=== PATIENT | male | born 1940 | race Caucasian/White ===

== ENCOUNTER 2019-10-01 16:30 | IRF | payer MEDICARE, SELFPAY ==
--- NOTE | ~2019-10-01 | XR_ITS ---
EXAMINATION: XR chest 1V portable DATE: 10/02/2019 14:27 INDICATION: Leukocytosis. TECHNIQUE: A single frontal view of the chest was obtained. COMPARISON: None. FINDINGS: There is mild atelectasis in the lower lung zones. No pleural effusion or pneumothorax. The heart size is normal. IMPRESSION: 1. Mild atelectasis in the lower lung zones. Reviewed, dictated and finalized at location B.
--- NOTE | 2019-10-01 17:16 | PC.NURSE ---
This patient, Darwin Daniels, was admitted to [facility] Room 225-01. Patient/family oriented to hospital policies and general routines including ID bracelet, bed and alarms, visiting hours, pain management, procedures, bathroom and other care routines, personal items, smoking policy, room service/diet, and visiting hours. Valuables list has been completed. Information on how to activate the Rapid Response Team has been discussed. Patient/Family are encouraged to report perceived risks to care and to ask questions if they do not understand what they are told or what they should do.
[2019-10-01 17:35] VITALS: BP 123/67; PULSE 68; RESP 18; TEMP 36.2; O2SAT 95; BMI 29.2
[2019-10-01] MEDS: cilostazoL 100 MG TABLET PO (20:46)
[2019-10-01] MEDS: ATORVASTATIN 40 MG TABLET 80 MG PO (20:46)
[2019-10-01] MEDS: APIXABAN 5 MG TABLET PO (20:46)
[2019-10-01] MEDS: HYDROCORTISONE 2.5% CREAM 30 GM TUBE 1 APPLIC TOPICAL (20:47)
[2019-10-01 22:00] VITALS: BP 145/73; PULSE 65; RESP 20; TEMP 36.6; O2SAT 96
[2019-10-02] MEDS: cilostazoL 100 MG TABLET PO ×2 (05:23→16:30)
[2019-10-02 05:27] LABS: Basophils Absolute Auto 0.1 K/mm3 (0.0-0.1); Basophils Percent Auto 0.5 % (0.2-1.2); Eosinophils Absolute Auto 0.3 K/mm3 (0-0.3); Hematocrit 44.4 % (42.0-52.0); Hemoglobin 14.5 g/dL (14.0-18.0); Immature Granulocyte Percent A 0.6 % (0-0.5); Lymphocytes Percent Auto 13.3 % (18.3-44.2); Mean Corpuscular HGB Conc 32.7 g/dl (32-36); Mean Corpuscular Hemoglobin 29.1 pg (26-34); Mean Corpuscular Volume 89.2 fl (80-100); Mean Platelet Volume 11.3 fl (7.4-10.4); Monocytes Absolute Auto 1.2 K/mm3 (0.1-0.6); Monocytes Percent Auto 6.8 % (2.6-8.5); Neutrophils Absolute Auto 13.3 K/mm3 (1.3-6.7); Neutrophils Percent Auto 76.8 % (45.5-73.1); Platelet Count Result 247 k/mm3 (150-375); Red Blood Count 4.98 M/mm3 (4.6-6.20); Red Cell Distribution Width 14.4 % (11.5-14.5); White Blood Count 17.3 K/mm3 (4.5-10.0)
[2019-10-02 05:31] LABS: Anion Gap 7 mmol/L (8-16); Blood Urea Nitrogen 21 mg/dL (9-20); Carbon Dioxide 21 mmol/L (22-30); Chloride 111 mmol/L (98-107); Cholesterol 111 mg/dL (0-200); Estimated CRCL calculation 61 ml/min; Estimated Glomerular Filt Rate > 60; Glucose 117 mg/dL (75-110); HDL Direct 31 mg/dL; Potassium 3.4 mmol/L (3.4-5.0); Sodium 139 mmol/L (137-145); Triglycerides 84 mg/dL (<150)
[2019-10-02 05:42] LABS: LDL Cholesterol Direct 62 mg/dL
[2019-10-02 06:00] VITALS: BP 140/78; PULSE 61; RESP 19; TEMP 36.1; O2SAT 91
[2019-10-02 08:00] VITALS: PULSE 64; RESP 18; O2SAT 95
[2019-10-02 08:51] VITALS: PULSE 62
[2019-10-02] MEDS: lisinopriL 20 MG TABLET 40 MG PO (08:51)
[2019-10-02] MEDS: LORATADINE 10 MG TABLET PO (08:51)
[2019-10-02] MEDS: APIXABAN 5 MG TABLET PO ×2 (08:51→17:00)
[2019-10-02] MEDS: METOPROLOL SUCCINATE EXT REL 12.5 MG TABCR PO (08:51)
[2019-10-02] MEDS: CITALOPRAM HYDROBROMIDE 20 MG TABLET PO (08:51)
[2019-10-02] MEDS: HYDROCORTISONE 2.5% CREAM 30 GM TUBE 1 APPLIC TOPICAL ×2 (08:52→20:23)
[2019-10-02] MEDS: NICOTINE (*PBKC) 7 MG PATCH 1 PATCH TRANSDERM (08:53)
--- NOTE | 2019-10-02 13:39 | PCCCNOTE ---
On 10/02/19, the student, Myranda Mott, provided care and completed [facility] documentation on this patient. I have reviewed the student's documentation and agree with the findings.
[2019-10-02 14:00] VITALS: BP 122/65; PULSE 64; RESP 18; TEMP 36; O2SAT 95
--- NOTE | 2019-10-02 15:01 | WPDREHABHP ---
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 The patient is a [ 63 year right handed male with a past medical history of hypertension and hyperlipidemia who presented to [facility] on September 28, 2019 with left-sided numbness, dizziness and diaphoresis. Patient reported that he was in his usual state of health until afternoon when he became dizzy he described this as spinning sensation. He became diaphoretic. He walked outside to see if fresh air would help but he developed left-sided numbness and felt that his legs were giving out. Paramedics were called and he was taken to the emergency room. Head CT scan was negative for acute intracranial pathology and the patient was given tPA. CT angiography of the head and neck was performed and revealed high-grade occlusion is stenosis at the arch of the left vertebral artery. He was transferred to [facility] neurology was consulted and recommended a dual antiplatelet therapy 24 hours post stroke and added a high intensity statin and aspirin. Hospitalization was significant for hypertension and left-sided weakness physical examination continued to reveal dizziness impaired balance and left-sided weakness and decreased gross motor control and decreased ability to perform ADLs and IADLs. Patient has not traveled outside the [place] or had contact with someone who traveled outside the [place] in the past 21 days patient has not traveled to [place] area of the [place] that is experiencing transmission of the Coronavirus and has not had close personal contact with anyone that has. the patient does not have fever is not experiencing lower respiratory illness symptom therapy was initiated at the acute care facility and the patient was transferred to us from [facility] on October 01, 2019] Therapy was initiated at the acute care facility and the patient transferred to us from [[facility]] on [] FALLS OR SURGERIES: The patient has had [no] major surgeries in the 100 days prior to admission. They had [no] falls in the past year. They had [no] falls with injury in the past year. PAST MEDICAL HISTORY hypertension and hyperlipidemia: PAST SURGICAL HISTORY: lumbar L4-5 back surgery right knee surgery bilateral carpal tunnel surgery SOCIAL HISTORY the patient lives with his 6 dogs and a cat in the under ground home is 70 steps down to the [place] house. He was completely independentwas work working full-time. He was able to perform all ADLs and IADLs independently. He was able to drive used to no assistive device. The patient is very motivated to return to his prior level of independent functioning. I have a and a job will love to go back to work FAMILY HISTORY: noncontributory PRIOR LEVEL OF FUNCTION: Eating was [INDEPENDENT] Oral Care was [INDEPENDENT] Toileting Hygiene was [INDEPENDENT] Shower/Bathing was [INDEPENDENT] Upper Body Dressing was [INDEPENDENT] Lower Body Dressing was [INDEPENDENT] Donning/[place] Footwear was [INDEPENDENT] Rolling Left and Right was [INDEPENDENT] Sit to Lying was [INDEPENDENT] Lying to Sitting was [INDEPENDENT] Sit to Stand was [INDEPENDENT] Bed to Chair Transfers was [INDEPENDENT] Toilet Transfers was [INDEPENDENT] Walking was [INDEPENDENT] [>500 feet] with [NO DEVICE] Wheelchair Mobility was [NOT APPLICABLE PRIOR TO ADMISSION] Stairs were [INDEPENDENT] CURRENT LEVEL OF FUNCTION: Eating was [SET UP ONLY] Oral Care was [SET UP ONLY] Toileting Hygiene was toileting hygiene is partial moderate assistance[] Shower/Bathing was [ partial and moderate assistance] Upper Body Dressing was [ supervision or t
--- NOTE | 2019-10-02 16:37 | RPD ---
INDIVIDUALIZED PLAN OF CARE FOR Darwin Daniels Brief Synthesis of Pre-Admission Screen, Post-Admission Evaluation and Therapy Evaluations: The patient presents to rehab with a right MCA subacute infarct. Comorbidities include hypertension, atrial fibrillation, leukocytosis, intermittent claudication, back pain, left-sided weakness, decreased gross motor control, and impaired balance. The complexity of the patient's medical management, nursing, and therapy needs require an inpatient hospital stay with a physician-led interdisciplinary team. The patient's needs will be best met in an intensive program vs a lower level of care. The patient requires physician services for neurology services, medical oversight, and coordination of care. The patient needs physician monitoring and treatment of hypertension, leukocytosis, monitoring for adverse reactions to new medication, monitoring for infection, and pain control. The patient requires nursing services for frequent neuro checks, anticoagulation therapy, medication management and education, pressure relief and skin care management, monitoring of labs, and fall/safety precuations. Deficits include: ADLs, balance, cognition, endurance, family training, education, mobility, pain management, ROM, safety, strength, and transfers. Land Management Forester/Case Management for: Discharge Planning and Patient/Family Counseling Physical Therapy: 5 days per week for 75 minutes. Treatments may include: Therapeutic Exercise, Gait Training, Neuromuscular Re-education, Transfer Training, Community Reintegration, Bed Mobility, Patient/Family Education, Wheelchair Mobility Group Therapy/Concurrent Therapy Rationales: -Improve attention span during functional activities in a distracted environment. -Enhance problem solving and/or adequate judgment skills during functional activities in a distracted environment. -Promote increased safety awareness in a distracted environment to reduce fall risk with functional tasks, transfers, and ambulation to allow a more safe, self-sufficient return to the home environment. -Improve dynamic balance skills to promote safety and independence with functional activities in a distracted environment for maximum gain. Occupational Therapy: 5 days per week for 75 minutes. Treatments may include: Therapeutic Exercise, Therapeutic Activity, Cognitive Training, Self-Care Transfer Training, Community Reintegration, Home Management, Patient/Family Education, Wheelchair Mobility Training, Energy Conservation Training Group Therapy/Concurrent Therapy Rationales: -Allow therapist to observe and teach generalization and carry-over of skills learned in individual therapy. -Enhance problem solving and sequencing skills during therapeutic activities in a distracted environment. -Promote increased safety awareness in a realistic setting to reduce fall risk with functional tasks due to visual and verbal distractions. -Increase functional level with ADLs, ADL transfers and use of adaptive equipment through therapeutic activities with others while promoting safety to allow a more safe, self-sufficient return home. Speech Therapy: 5 days per week for 30 minutes. Treatments may include: Dysphasia Therapy, Speech/Language/Communication Therapy, Cognitive Training, Patient/Family Education Group Therapy/Concurrent Therapy - Rationale: -Allow therapist to observe and teach generalization and carry-over of skills learned in individual therapy. -Improve comprehension skills with complex or abstract ideas through discussion in a realistic setting. -Enhance problem solving skills with complex issues during activities in a distracted environment. -Promote increased memory skills and concentration in a distracted environment for a safe transition home. -Improve attention and focus with language/communication skills in a realistic and supportive therapeutic setting. -Allow for practice of expression of basic needs and ideas through functional activiti
[2019-10-02] MEDS: ATORVASTATIN 40 MG TABLET 80 MG PO (20:21)
[2019-10-02 21:53] VITALS: BP 119/69; PULSE 75; RESP 18; TEMP 36.1; O2SAT 95
[2019-10-03] MEDS: cilostazoL 100 MG TABLET PO ×2 (05:09→17:48)
[2019-10-03 05:22] LABS: Basophils Absolute Auto 0.1 K/mm3 (0.0-0.1); Basophils Percent Auto 0.4 % (0.2-1.2); Eosinophils Absolute Auto 0.3 K/mm3 (0-0.3); Eosinophils Percent Auto 1.9 % (0-4.4); Hematocrit 42.6 % (42.0-52.0); Hemoglobin 13.9 g/dL (14.0-18.0); Immature Granulocyte Absolute 0.09 K/mm3 (0.00-0.031); Immature Granulocyte Percent A 0.5 % (0-0.5); Lymphocytes Absolute Auto 2.59 K/mm3 (0.9-3.2); Lymphocytes Percent Auto 14.9 % (18.3-44.2); Mean Corpuscular HGB Conc 32.6 g/dl (32-36); Mean Corpuscular Hemoglobin 28.5 pg (26-34); Mean Corpuscular Volume 87.3 fl (80-100); Mean Platelet Volume 11.3 fl (7.4-10.4); Monocytes Absolute Auto 1.3 K/mm3 (0.1-0.6); Monocytes Percent Auto 7.2 % (2.6-8.5); Neutrophils Absolute Auto 13.1 K/mm3 (1.3-6.7); Neutrophils Percent Auto 75.1 % (45.5-73.1); Platelet Count Result 275 k/mm3 (150-375); Red Blood Count 4.88 M/mm3 (4.6-6.20); Red Cell Distribution Width 14.2 % (11.5-14.5); White Blood Count 17.4 K/mm3 (4.5-10.0)
[2019-10-03 05:55] VITALS: BP 105/53; PULSE 70; RESP 18; TEMP 35.6; O2SAT 90
[2019-10-03] MEDS: APIXABAN 5 MG TABLET PO ×2 (08:50→17:48)
[2019-10-03] MEDS: CITALOPRAM HYDROBROMIDE 20 MG TABLET PO (08:50)
[2019-10-03] MEDS: HYDROCORTISONE 2.5% CREAM 30 GM TUBE 1 APPLIC TOPICAL ×2 (08:50→20:29)
[2019-10-03] MEDS: lisinopriL 20 MG TABLET 40 MG PO (08:50)
[2019-10-03 08:51] VITALS: PULSE 70
[2019-10-03] MEDS: METOPROLOL SUCCINATE EXT REL 12.5 MG TABCR PO (08:51)
[2019-10-03] MEDS: NICOTINE (*PBKC) 7 MG PATCH 1 PATCH TRANSDERM (08:51)
--- NOTE | 2019-10-03 12:30 | PM.IMCN ---
Assessment and Plan Assessment and plan (1) Leukocytosis: Code(s): D72.829 - Elevated white blood cell count, unspecified Status: Acute Assessment and Plan: WBC was elevated at 17.3 on initial labs and 17.4 on repeat. There is neutrophil predominance. He is feeling well and at this time there is no obvious etiology for the leukocytosis. There does not appear to be any source of infection. He has been afebrile. He is not septic. There are no prior labs for review to establish a baseline WBC. He is a smoker and it is possibly that he simply has an elevated white count. He has not received any steroids. No evidence of pneumonia on CXR. Patient has not had any respiratory symptoms. Will check UA to evaluate for urinary source. He is asymptomatic. Attempt to obtain stool cultures. He has had intermittent diarrhea for months. He has not had any abdominal pain, cramping, bloating, or discomfort. At this time there is no indication for CT scan of the abdomen. Order blood cultures for evaluation Check labs including CRP and lactic. Monitor CBC (2) Hyperlipidemia: Code(s): E78.5 - Hyperlipidemia, unspecified Status: Acute Assessment and Plan: Lipid panel was performed and is within normal limits. Continue atorvastatin (3) Hypertension: Code(s): I10 - Essential (primary) hypertension Status: Acute Assessment and Plan: Blood pressures are stable and well controlled. 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 He has residual left sided weakness. Continue current care plan, PT/OT/ST (5) Tobacco abuse: Code(s): Z72.0 - Tobacco use Status: Acute Assessment and Plan: He smokes 1 ppd. He has not smoked in 1 week since his hospital evaluation. I have educated him on smoking cessation. Continue nicotine patch HPI Data of Consult Consult date: 10/03/19 Requesting Physician: Fahad Conklin MD Primary Care Provider: PHYSICIAN NOT ON STAFF Consult Narrative Narrative: Date of admission: 10/01/2019 Date of service: 10/03/2019 Darwin Daniels is a 79 year old male with a history of hypertension, hyperlipidemia, peripheral vascular disease, and recent left vertebral artery occlusive stroke who is being evaluated in consultation by the hospitalist service for leukocytosis. He is currently undergoing [facility] after having a recent stroke for which she was treated at [facility] approximately 1 week ago. He has residual left arm and leg numbness and tingling. He states the extremities will just flop. He also believes he has notice changes in his speech and has had a harder time swallowing. Aside from these complaints related to residual effects from his stroke, he has no additional concerns at this time. He does not feel ill. He states that he is in his usual state of health with the exception of his recent stroke symptoms. He is a fair historian at best. He is not able to contribute much to his medical history and he does not know what medications he takes because his handles this for him. He denies fever, chills, nausea, vomiting, or headache. He reports that he has had diarrhea on and off for several months. His last bowel movement was 4 days ago and he believes it was liquid at this time. He states that every now and then he will have watery stools but this does not seem to have been a recent issue for him. He does not have any abdominal pain, cramping, or bloating. He endorses productive cough that has gone on for weeks. He states he has sputum production but he swallows it and is unable to say what it looks like. He denies shortness of breath or chest pain. No sore throat. He denies any irritative
--- NOTE | 2019-10-03 13:59 | WPDNEURORHBP ---
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 hypertension hyperlipidemia previous right carotid endarterectomy and chronically occluded right cervical artery [facility] surgeons were consulted for ICA occlusion on the right side but he was noted good candidate to report to repeat the [id number] 13:59 Review of Systems Review of Systems: All systems reviewed & are unremarkable except as noted in HPI and below Functional Status Ambulation Ability Ability to Ambulate 10 Feet: Minimum Assistance X 1 Ability to Ambulate 50 Feet With 2 Turns: Minimum Assistance X 1 Ability to Ambulate 150 Feet: Minimum Assistance X 1 Ambulation Assistive Devices: Walker, Wheeled Transfers Ability Ability to Transfer In/Out of Chair: Minimum Assistance X 1 Exam Narrative: Exam Narrative: continues to be awake alert cooperative in no obvious acute distress at this particular time his is visiting him head normocephalic ears nose throat exam normal neck is supple heart regular lungs clear abdomen soft neurological is normal mental status normal speech and follows all instructions very well and exam revealed him to be left hemiparetic with hyperreflexia and upgoing plantar response Objective Data Vital Signs Vital Signs: Vital Signs - 24 hr 10/02/19 14:00 10/02/19 21:53 10/03/19 05:55 Temperature 36.0 C L 36.1 C L 35.6 C L Pulse Rate 64 75 70 Respiratory Rate 18 18 18 Blood Pressure 122/65 119/69 105/53 L Pulse Oximetry 95 95 90 10/03/19 08:51 Temperature Pulse Rate 70 Respiratory Rate Blood Pressure Pulse Oximetry Intake/Output Intake/Output: Intake & Output 09/30/19 10/01/19 10/02/19 10/03/19 23:59 23:59 23:59 23:59 Intake Total 240 960 480 Balance 240 960 480 Meds/Results Medications: Active Medications Generic Name Dose Route Start Last Admin Trade Name Freq PRN Reason Stop Dose Admin Apixaban 5 mg 10/01/19 19:40 10/03/19 08:50 Eliquis PO 5 mg BID ANGEL Administration Atorvastatin Calcium 80 mg 10/01/19 21:00 10/02/19 20:21 Lipitor PO 80 mg HS ANGEL Administration Cilostazol 100 mg 10/01/19 19:40 10/03/19 05:09 Pletal PO 100 mg BIDAC ANGEL Administration Citalopram Hydrobromide 20 mg 10/02/19 09:00 10/03/19 08:50 Celexa PO 20 mg DAILY ANGEL Administration Ergocalciferol 50,000 unit 10/05/19 09:00 Drisdol PO Mo@0900 ANGEL Hydrocortisone 1 applic 10/01/19 21:00 10/03/19 08:50 Hydrocortisone 2.5% Cream TOPICAL 1 applic Q12HR ANGEL Administration Lisinopril 40 mg 10/02/19 09:00 10/03/19 08:50 Prinivil PO 40 mg DAILY ANGEL Administration Loratadine 10 mg 10/01/19 19:34 10/02/19 08:51 Claritin PO 10 mg DAILY PRN Administration Allergy Symptoms Metoprolol Succinate 12.5 mg 10/02/19 09:00 10/03/19 08:51 Toprol Xl PO 12.5 mg DAILY ANGEL Administration Nicotine 1 patch 10/02/19 09:00 10/03/19 08:51 Nicoderm Cq 7 Mg TRANSDERM 1 patch DAILY ANGEL Administration Radiology Results: ITS Impressions Chest X-Ray 10/02/19 14:36 IMPRESSION: 1. Mild atelectasis in the lower lung zones. Labs Labs: Laboratory Results - last 24 hr 10/03/19 04:44 WBC 17.4 H RBC 4.88 Hgb 13.9 L Hct 42.6 MCV 87.3 MCH 28.5 MCHC 32.6 RDW 14.2 Plt Count 275 MPV 11.3 H Immature Gran % (Auto) 0.5 Neut % (Auto) 75.1 H Lymph % (Auto) 14.9 L [place] % (Auto) 7.2 Eos % (Auto) 1.9 Baso % (Auto) 0.4 Lymph # (Auto) 2.59 [place] # (Auto) 1.3 H Eos # (Auto) 0.3 Baso # (Auto) 0.1 Abs Immat Gran (auto) 0.09 H Absolute Neuts (auto) 13.1 H Absolute Nucleated RBC 0.0 Nucleated RBC % 0.0 Progress Note: A&P Assessment and Plan (1) Tobacco abuse: Code(s): Z72.0 - Tobacco use Status: Acute (2) Leukocytosis: Code(s): D72.829 - Elevated white
[2019-10-03 14:00] VITALS: BP 120/56; PULSE 76; RESP 20; TEMP 36.7; O2SAT 96
[2019-10-03] MEDS: ATORVASTATIN 40 MG TABLET 80 MG PO (20:28)
[2019-10-03 22:00] VITALS: BP 124/59; PULSE 64; RESP 18; TEMP 35.8; O2SAT 97
[2019-10-03 22:53] LABS: Add Urine Microscopic? YES; Appearance Urine Clear (Clear); Bilirubin Urine Negative (Negative); Blood Urine 1+ (Negative); Color Urine Yellow (Yellow); Glucose Urine UA Negative (Negative); Ketones Urine Negative (Negative); Leukocyte Esterase Ur Negative LEU/UL (Negative); Mucus Urine Rare /lpf; Nitrate Urine Negative (Negative); Protein Urine Negative (Negative); Specific Grav Ur 1.027 (1.001-1.035); Squamous Epithelial Cell Urine Rare /hpf (Few); Urobilinogen Urine Negative mg/dL (<2.0); WBC Urine 0-3 /hpf
[2019-10-04 04:58] LABS: Basophils Absolute Auto 0.1 K/mm3 (0.0-0.1); Basophils Percent Auto 0.4 % (0.2-1.2); Eosinophils Absolute Auto 0.3 K/mm3 (0-0.3); Eosinophils Percent Auto 1.9 % (0-4.4); Hemoglobin 13.9 g/dL (14.0-18.0); Immature Granulocyte Absolute 0.09 K/mm3 (0.00-0.031); Immature Granulocyte Percent A 0.6 % (0-0.5); Lymphocytes Absolute Auto 2.49 K/mm3 (0.9-3.2); Lymphocytes Percent Auto 15.4 % (18.3-44.2); Mean Corpuscular HGB Conc 33.1 g/dl (32-36); Mean Corpuscular Hemoglobin 29.3 pg (26-34); Mean Corpuscular Volume 88.4 fl (80-100); Mean Platelet Volume 11.3 fl (7.4-10.4); Monocytes Absolute Auto 1.3 K/mm3 (0.1-0.6); Monocytes Percent Auto 7.8 % (2.6-8.5); Neutrophils Percent Auto 73.9 % (45.5-73.1); Platelet Count Result 252 k/mm3 (150-375); Red Blood Count 4.75 M/mm3 (4.6-6.20); Red Cell Distribution Width 14.2 % (11.5-14.5); White Blood Count 16.2 K/mm3 (4.5-10.0)
[2019-10-04 05:19] LABS: Lactic Acid 0.7 mmol/L (0.7-2.1)
[2019-10-04 05:24] LABS: CRP 1.2 mg/dL (<1.0)
[2019-10-04 06:00] VITALS: BP 119/66; PULSE 93; RESP 18; TEMP 33.8; O2SAT 91
[2019-10-04] MEDS: cilostazoL 100 MG TABLET PO ×2 (06:16→17:32)
[2019-10-04 08:35] VITALS: TEMP 36.8
[2019-10-04 08:55] VITALS: PULSE 93
[2019-10-04] MEDS: NICOTINE (*PBKC) 7 MG PATCH 1 PATCH TRANSDERM (08:55)
[2019-10-04] MEDS: METOPROLOL SUCCINATE EXT REL 12.5 MG TABCR PO (08:55)
[2019-10-04] MEDS: APIXABAN 5 MG TABLET PO ×2 (08:55→17:32)
[2019-10-04] MEDS: HYDROCORTISONE 2.5% CREAM 30 GM TUBE 1 APPLIC TOPICAL (08:55)
[2019-10-04] MEDS: LORATADINE 10 MG TABLET PO (08:55)
[2019-10-04] MEDS: CITALOPRAM HYDROBROMIDE 20 MG TABLET PO (08:55)
[2019-10-04] MEDS: lisinopriL 20 MG TABLET 40 MG PO (08:55)
--- NOTE | 2019-10-04 13:09 | PM.IMPN ---
Progress Note: A&P Assessment and Plan (1) Leukocytosis: Code(s): D72.829 - Elevated white blood cell count, unspecified Status: Acute Assessment and Plan: WBC was elevated at 17.3 on initial labs and 17.4 on repeat. There is neutrophil predominance. Lymphocytes are very mildly decreased. He is feeling well and at this time there is no obvious etiology for the leukocytosis. I do not suspect the patient has an active infection. He has been afebrile. He is not septic. There are no prior labs for review to establish a baseline WBC. He is a smoker and it is possible that he simply has an elevated baseline white count. His states they have been told before his white count has been elevated. He has not received any steroids. WBC has declined to 16.2 today. Lactic is within normal limits. CRP is minimally elevated. No evidence of pneumonia on CXR. Patient has not had any respiratory symptoms. UA was normal. Urine culture is pending. He is asymptomatic. Stool cultures are pending. Preliminary blood cultures reveal NGTD Monitor CBC with diff and continue to trend WBC (2) Hyperlipidemia: Code(s): E78.5 - Hyperlipidemia, unspecified Status: Acute Assessment and Plan: Lipid panel was performed and is within normal limits. Continue atorvastatin (3) Hypertension: Code(s): I10 - Essential (primary) hypertension Status: Acute Assessment and Plan: Blood pressures are stable and well controlled. 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 He has residual left sided weakness. Continue current care plan, PT/OT/ST (5) Tobacco abuse: Code(s): Z72.0 - Tobacco use Status: Acute Assessment and Plan: He smokes 1 ppd. He has not smoked in 1 week since his hospital evaluation. I have educated him on smoking cessation. Continue nicotine patch Additional Plan Will add Ensure dietary supplements as patient has not been eating much because he is a picky eater. Subjective Date/time seen: 10/04/19 13:09 Interval history: Date of service: 10/04/2019 He is feeling well today. He has no complaints at this time. He did therapy today and tolerated it well. He denies any infectious signs or symptoms. He has no fever, chills, nausea, vomiting, abdominal pain, shortness of breath, cough, chest pain, dizziness, or lightheadedness. He had a loose stool today. 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 He has had poor appetite today and he states he does not like the food here. He also does not like to drink water. I spoke with him and his about zero sugar additives to flavor water so he will remain well hydrated. Review of Systems Review of Systems: Narrative: A 12 point review of systems was reviewed with pertinent positives and negatives as per HPI. Exam Narrative: Exam Narrative: Mr. Daniels is a well-nourished 79-year-old male who is lying supine in bed. He appears comfortable and is in no acute respiratory distress. 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
[2019-10-04 14:00] VITALS: BP 102/56; PULSE 66; RESP 18; TEMP 36.2; O2SAT 93
[2019-10-04] MEDS: ATORVASTATIN 40 MG TABLET 80 MG PO (20:57)
[2019-10-04 21:58] VITALS: PULSE 86; O2SAT 92
[2019-10-04 22:00] VITALS: BP 120/51; PULSE 62; RESP 18; TEMP 36.9; O2SAT 94
[2019-10-05 05:07] LABS: Basophils Absolute Auto 0.1 K/mm3 (0.0-0.1); Basophils Percent Auto 0.5 % (0.2-1.2); Eosinophils Absolute Auto 0.4 K/mm3 (0-0.3); Eosinophils Percent Auto 2.5 % (0-4.4); Hematocrit 40.9 % (42.0-52.0); Hemoglobin 13.7 g/dL (14.0-18.0); Immature Granulocyte Absolute 0.07 K/mm3 (0.00-0.031); Immature Granulocyte Percent A 0.5 % (0-0.5); Lymphocytes Absolute Auto 2.63 K/mm3 (0.9-3.2); Lymphocytes Percent Auto 17.7 % (18.3-44.2); Mean Corpuscular HGB Conc 33.5 g/dl (32-36); Mean Corpuscular Hemoglobin 29.1 pg (26-34); Mean Platelet Volume 11.1 fl (7.4-10.4); Monocytes Absolute Auto 1.1 K/mm3 (0.1-0.6); Monocytes Percent Auto 7.7 % (2.6-8.5); Neutrophils Absolute Auto 10.6 K/mm3 (1.3-6.7); Neutrophils Percent Auto 71.1 % (45.5-73.1); Platelet Count Result 266 k/mm3 (150-375); Red Cell Distribution Width 14.1 % (11.5-14.5); White Blood Count 14.9 K/mm3 (4.5-10.0)
[2019-10-05 06:00] VITALS: BP 115/90; PULSE 69; RESP 16; TEMP 36.6; O2SAT 96
[2019-10-05 08:00] VITALS: PULSE 76; RESP 18; O2SAT 96
[2019-10-05] MEDS: cilostazoL 100 MG TABLET PO ×2 (08:02→16:20)
[2019-10-05] MEDS: APIXABAN 5 MG TABLET PO ×2 (09:40→16:21)
[2019-10-05 09:41] VITALS: PULSE 68
[2019-10-05] MEDS: ERGOCALCIFEROL 50,000 UNIT CAPSULE 50000 UNITS PO (09:41)
[2019-10-05] MEDS: NICOTINE (*PBKC) 7 MG PATCH 1 PATCH TRANSDERM (09:41)
[2019-10-05] MEDS: lisinopriL 20 MG TABLET 40 MG PO (09:41)
[2019-10-05] MEDS: LORATADINE 10 MG TABLET PO (09:41)
[2019-10-05] MEDS: METOPROLOL SUCCINATE EXT REL 12.5 MG TABCR PO (09:41)
[2019-10-05] MEDS: CITALOPRAM HYDROBROMIDE 20 MG TABLET PO (09:42)
--- NOTE | 2019-10-05 12:57 | PM.IMPN ---
Progress Note: A&P Assessment and Plan (1) Leukocytosis: Qualifiers: Leukocytosis type: unspecified Qualified Code(s): D72.829 - Elevated white blood cell count, unspecified Code(s): D72.829 - Elevated white blood cell count, unspecified Status: Acute Assessment and Plan: WBC was elevated at 17.3 on initial labs and 17.4 on repeat. There is neutrophil predominance. Lymphocytes are very mildly decreased. He is feeling well and at this time there is no obvious etiology for the leukocytosis. I do not suspect the patient has an active infection. He has been afebrile. He is not septic. There are no prior labs for review to establish a baseline WBC. He is a smoker and it is possible that he simply has an elevated baseline white count. Additionally, could have been secondary to acute stroke with slow decline. His states they have been told before his white count has been elevated. He has not received any steroids. WBC has declined to 14.9k today. Lactic is within normal limits. CRP is minimally elevated. No evidence of pneumonia on CXR. Patient has not had any respiratory symptoms. Urine culture is negative C diff toxin is negative. Cryptosporidium and giardia negative. Additional stool cultures are pending. Preliminary blood cultures reveal NGTD Monitor CBC with diff and continue to trend WBC (2) Hyperlipidemia: Qualifiers: Hyperlipidemia type: unspecified Qualified Code(s): E78.5 - Hyperlipidemia, unspecified Code(s): E78.5 - Hyperlipidemia, unspecified Status: Acute Assessment and Plan: Lipid panel was performed and is within normal limits. Continue atorvastatin (3) Hypertension: Qualifiers: Hypertension type: essential hypertension Qualified Code(s): I10 - Essential (primary) hypertension Code(s): I10 - Essential (primary) hypertension Status: Acute Assessment and Plan: Blood pressures are stable and well controlled. 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 He has residual left sided weakness. Continue current care plan, PT/OT/ST (5) Tobacco abuse: Code(s): Z72.0 - Tobacco use Status: Acute Assessment and Plan: He smokes 1 ppd. He has not smoked in 1 week since his hospital evaluation. I have educated him on smoking cessation. Continue nicotine patch Subjective Date/time seen: 10/05/19 12:57 Interval history: Date of service: 10/05/2019 Review of Systems Review of Systems: Narrative: A 12 point review of systems was reviewed with pertinent positives and negatives as per HPI. Exam Narrative: Exam Narrative: Mr. Daniels is a well-nourished 79-year-old male who is lying supine in bed. He appears comfortable and is in no acute respiratory distress. 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, otherwise strength 5/5 throughout HEENMT: normocephalic, atraumatic, EOMI, sclerae anicteric, moist oral mucosa, tongue midline Neck: supple, no lymphadenopathy Respiratory: diminished breath sounds without crackles, wheezes, or rhonchi, nonlabored breathing Cardio: regular rate, regular rhythm with S1-S2 Abdomen: nondistended, normoactive bowel sounds, soft, nontender to palpation Extremities: no edema, erythema, cyanosis, clubbing, or tenderness to palpation, DP pulses 2+ bilaterally Skin: no rashes, lesions, wounds, or openings, warm and dry Psych: appropriate mood and affect Objective Data Vital Signs Vital Signs: Vital Signs
[2019-10-05 13:22] VITALS: BMI 29.2
--- NOTE | 2019-10-05 13:25 | WPDNEURORHBP ---
Subjective Date/time seen: 10/05/19 13:25 Interval history: this 79-year-old is here after having had the stroke with has left him with left-sided weakness is doing fairly well his leukocytosis coming down the hospitalist notes were reviewed he is feeling good denies any headache nausea vomiting extraordinary fatigue chest pain shortness of breath fever chills sore throat Review of Systems Review of Systems: All systems reviewed & are unremarkable except as noted in HPI and below Functional Status Ambulation Ability Ability to Ambulate 10 Feet: Contact Guard Ability to Ambulate 50 Feet With 2 Turns: Contact Guard Ability to Ambulate 150 Feet: Contact Guard Ambulation Assistive Devices: Walker, Wheeled Transfers Ability Ability to Transfer In/Out of Chair: Minimum Assistance X 1 Exam Const: General: comfortable and no acute distress HENMT: General nose exam: Normal nares present Mouth: Yes moist mucous membranes Eyes: General: appearance normal, both eyes and all related structures Neck: Neck: supple and no JVD Resp: Effort & Inspection: normal respiratory effort Auscultation: clear to auscultation bilaterally Cardio: Rate: regular rate Rhythm: regular rhythm GI: GI Palp: Yes Soft to palpation Auscultation: normal bowel sounds Skin: General skin exam: normal color and no rashes or lesions noted Neuro: Other: patient awake alert well oriented denies any headache nausea vomiting chest pain shortness of breath fever chills sore throat is weakness on the left side is improving Extrem: General: normal to inspection Psych: Mental Status: mental status grossly normal Objective Data Vital Signs Vital Signs: Vital Signs - 24 hr 10/04/19 14:00 10/04/19 21:58 10/04/19 22:00 Temperature 36.2 C L 36.9 C Pulse Rate 66 86 62 Respiratory Rate 18 18 Blood Pressure 102/56 L 120/51 L Pulse Oximetry 93 92 94 10/05/19 06:00 10/05/19 09:41 Temperature 36.6 C Pulse Rate 69 68 Respiratory Rate 16 Blood Pressure 115/90 Pulse Oximetry 96 Intake/Output Intake/Output: Intake & Output 10/02/19 10/03/19 10/04/19 10/05/19 23:59 23:59 23:59 23:59 Intake Total 960 720 900 240 Balance 960 720 900 240 Meds/Results Medications: Active Medications Generic Name Dose Route Start Last Admin Trade Name Freq PRN Reason Stop Dose Admin Apixaban 5 mg 10/01/19 19:40 10/05/19 09:40 Eliquis PO 5 mg BID ANGEL Administration Atorvastatin Calcium 80 mg 10/01/19 21:00 10/04/19 20:57 Lipitor PO 80 mg HS ANGEL Administration Cilostazol 100 mg 10/01/19 19:40 10/05/19 08:02 Pletal PO 100 mg BIDAC ANGEL Administration Citalopram Hydrobromide 20 mg 10/02/19 09:00 10/05/19 09:42 Celexa PO 20 mg DAILY ANGEL Administration Ergocalciferol 50,000 unit 10/05/19 09:00 10/05/19 09:41 Drisdol PO 50,000 unit Mo@0900 [facility] Administration Hydrocortisone 1 applic 10/04/19 20:53 Hydrocortisone 2.5% Cream TOPICAL Q12HR PRN Rash Lisinopril 40 mg 10/02/19 09:00 10/05/19 09:41 Prinivil PO 40 mg DAILY ANGEL Administration Loperamide HCl 2 mg 10/04/19 15:13 Loperamide Hcl PO PRN PRN Diarrhea Loratadine 10 mg 10/01/19 19:34 10/05/19 09:41 Claritin PO 10 mg DAILY PRN Administration Allergy Symptoms Metoprolol Succinate 12.5 mg 10/02/19 09:00 10/05/19 09:41 Toprol Xl PO 12.5 mg DAILY ANGEL Administration Nicotine 1 patch 10/02/19 09:00 10/05/19 09:41 Nicoderm Cq 7 Mg TRANSDERM 1 patch DAILY ANGEL Administration Radiology Results: ITS Impressions Chest X-Ray 10/02/19 14:36 IMPRESSION: 1. Mild atelectasis in the lower lung zones. Labs Labs: Laboratory Results - last 24 hr 10/05/19 04:49 WBC 14.9 H RBC 4.70 Hgb 13.7 L Hct 40.9 L MCV 87.0 MCH 29.1 MCHC 33.5 RDW 14.1 Plt Count 266 MPV 11.1 H Immature Gran % (Auto) 0.5 Neut % (Auto) 71.1 Lymph % (Auto) 17.7 L [place]
[2019-10-05 14:00] VITALS: BP 138/62; PULSE 76; RESP 18; TEMP 36.3; O2SAT 96
--- NOTE | 2019-10-05 15:04 | PCNSR ---
On 10/05/19, the student, Avery Sanz, provided care and [facility] on this patient. I have reviewed the student's documentation and agree with the findings.
[2019-10-05] MEDS: ATORVASTATIN 40 MG TABLET 80 MG PO (20:29)
[2019-10-05 20:41] VITALS: BP 101/47; PULSE 69; RESP 18; TEMP 36.4; O2SAT 93
[2019-10-05 22:36] VITALS: PULSE 86; O2SAT 92
[2019-10-06 05:20] LABS: Basophils Absolute Auto 0.1 K/mm3 (0.0-0.1); Basophils Percent Auto 0.5 % (0.2-1.2); Eosinophils Absolute Auto 0.4 K/mm3 (0-0.3); Eosinophils Percent Auto 2.5 % (0-4.4); Hemoglobin 13.4 g/dL (14.0-18.0); Immature Granulocyte Absolute 0.06 K/mm3 (0.00-0.031); Immature Granulocyte Percent A 0.4 % (0-0.5); Lymphocytes Absolute Auto 2.21 K/mm3 (0.9-3.2); Mean Corpuscular HGB Conc 33.5 g/dl (32-36); Mean Corpuscular Hemoglobin 29.5 pg (26-34); Mean Corpuscular Volume 87.9 fl (80-100); Mean Platelet Volume 11.2 fl (7.4-10.4); Monocytes Percent Auto 6.7 % (2.6-8.5); Neutrophils Percent Auto 74.9 % (45.5-73.1); Platelet Count Result 266 k/mm3 (150-375); Red Blood Count 4.55 M/mm3 (4.6-6.20); Red Cell Distribution Width 14.3 % (11.5-14.5); White Blood Count 14.7 K/mm3 (4.5-10.0)
[2019-10-06 06:00] VITALS: BP 110/56; PULSE 85; RESP 18; TEMP 35.9; O2SAT 95
[2019-10-06 08:32] VITALS: PULSE 86
[2019-10-06] MEDS: lisinopriL 20 MG TABLET 40 MG PO (08:32)
[2019-10-06] MEDS: CITALOPRAM HYDROBROMIDE 20 MG TABLET PO (08:32)
[2019-10-06] MEDS: NICOTINE (*PBKC) 7 MG PATCH 1 PATCH TRANSDERM (08:32)
[2019-10-06] MEDS: cilostazoL 100 MG TABLET PO ×2 (08:32→16:33)
[2019-10-06] MEDS: METOPROLOL SUCCINATE EXT REL 12.5 MG TABCR PO (08:32)
[2019-10-06] MEDS: APIXABAN 5 MG TABLET PO ×2 (08:32→16:33)
[2019-10-06 08:40] VITALS: PULSE 86; RESP 18; O2SAT 95
--- NOTE | 2019-10-06 10:45 | PCPTNOTE ---
Darwin Daniels was evaluated for a wheeled walker on 10/06/2019 by this physical therapist. The wheeled walker will resolve patient's mobility limitations and will be used for ADL's within the home. The patient can safely use the wheeled walker. ?The wheeled walker will resolve the patient?s mobility deficits, including transfers/gait/ADL's. Dee Villalobos PT
--- NOTE | 2019-10-06 13:12 | WPDNEURORHBP ---
Subjective Date/time seen: 10/06/19 13:12 Interval history: this 79-year-old gentleman is here after having had a stroke of the right cerebral hemisphere which left him with left-sided weakness is receiving PT OT and speech is speech family for his short-term memory and also cognitive function and the right hemispheric deficit his doing much better in the therapy denies any headache nausea vomiting chest pain shortness of breath and he is in chronic long-time smoker for which I have increased his nicotine patch 14 microarray and daily Review of Systems Review of Systems: All systems reviewed & are unremarkable except as noted in HPI and below Functional Status Ambulation Ability Ability to Ambulate 10 Feet: Contact Guard Ability to Ambulate 50 Feet With 2 Turns: Contact Guard Ability to Ambulate 150 Feet: Contact Guard Ambulation Assistive Devices: Walker, Wheeled Transfers Ability Ability to Transfer In/Out of Chair: Minimum Assistance X 1 Exam Const: General: comfortable and no acute distress HENMT: General nose exam: Normal nares present Mouth: Yes moist mucous membranes Eyes: General: appearance normal, both eyes and all related structures Neck: Neck: supple and no JVD Resp: Effort & Inspection: normal respiratory effort Auscultation: clear to auscultation bilaterally Cardio: Rate: regular rate Rhythm: regular rhythm GI: GI Palp: Yes Soft to palpation Auscultation: normal bowel sounds Skin: General skin exam: normal color and no rashes or lesions noted Neuro: Other: patient awake alert well oriented however short-term memory deficit right hemispheric deficit with left-sided weakness higher level is balance problem and the left-sided neglect Extrem: General: normal to inspection Psych: Other: short-term memory deficit Objective Data Vital Signs Vital Signs: Vital Signs - 24 hr 10/05/19 14:00 10/05/19 20:41 10/05/19 22:36 Temperature 36.3 C L 36.4 C L Pulse Rate 76 69 86 Respiratory Rate 18 18 Blood Pressure 138/62 101/47 L Pulse Oximetry 96 93 92 10/06/19 06:00 10/06/19 08:32 10/06/19 08:40 Temperature 35.9 C L Pulse Rate 85 86 86 Respiratory Rate 18 18 Blood Pressure 110/56 L Pulse Oximetry 95 95 Intake/Output Intake/Output: Intake & Output 10/03/19 10/04/19 10/05/19 10/06/19 23:59 23:59 23:59 23:59 Intake Total 720 900 480 360 Balance 720 900 480 360 Meds/Results Medications: Active Medications Generic Name Dose Route Start Last Admin Trade Name Freq PRN Reason Stop Dose Admin Apixaban 5 mg 10/01/19 19:40 10/06/19 08:32 Eliquis PO 5 mg BID [facility] Administration Atorvastatin Calcium 80 mg 10/01/19 21:00 10/05/19 20:29 Lipitor PO 80 mg HS [facility] Administration Cilostazol 100 mg 10/01/19 19:40 10/06/19 08:32 Pletal PO 100 mg BIDAC [facility] Administration Citalopram Hydrobromide 20 mg 10/02/19 09:00 10/06/19 08:32 Celexa PO 20 mg DAILY [facility] Administration Ergocalciferol 50,000 unit 10/05/19 09:00 10/05/19 09:41 Drisdol PO 50,000 unit Mo@0900 [facility] Administration Hydrocortisone 1 applic 10/04/19 20:53 Hydrocortisone 2.5% Cream TOPICAL Q12HR PRN Rash Lisinopril 40 mg 10/02/19 09:00 10/06/19 08:32 Prinivil PO 40 mg DAILY [facility] Administration Loperamide HCl 2 mg 10/04/19 15:13 Loperamide Hcl PO PRN PRN Diarrhea Loratadine 10 mg 10/01/19 19:34 10/05/19 09:41 Claritin PO 10 mg DAILY PRN Administration Allergy Symptoms Metoprolol Succinate 12.5 mg 10/02/19 09:00 10/06/19 08:32 Toprol Xl PO 12.5 mg DAILY [facility] Administration Nicotine 1 patch 10/07/19 09:00 Nicoderm Cq 14 Mg TRANSDERM QAM [facility] Radiology Results: ITS Impressions Chest X-Ray 10/02/19 14:36 IMPRESSION: 1. Mild atelectasis in the lower lung zones. Labs Labs: Laboratory Results - last 24 hr 10/06/19 05:11 WBC 14.7 H RBC 4.55 L Hgb 13.4 L Hct
--- NOTE | 2019-10-06 13:41 | PM.IMPN ---
Progress Note: A&P Assessment and Plan (1) Leukocytosis: Qualifiers: Leukocytosis type: unspecified Qualified Code(s): D72.829 - Elevated white blood cell count, unspecified Code(s): D72.829 - Elevated white blood cell count, unspecified Status: Acute Assessment and Plan: WBC was elevated at 17.3 on initial labs and 17.4 on repeat. There is neutrophil predominance. Lymphocytes are very mildly decreased. He is feeling well and at this time there is no obvious etiology for the leukocytosis. I do not suspect the patient has an active infection. He has been afebrile. He is not septic. There are no prior labs for review to establish a baseline WBC. He is a smoker and it is possible that he simply has an elevated baseline white count. Additionally, could have been secondary to acute stroke with slow decline. His states they have been told before his white count has been elevated. He has not received any steroids. WBC has declined to 14.7k today. Lactic is within normal limits. CRP is minimally elevated. No evidence of pneumonia on CXR. Patient has not had any respiratory symptoms. Urine culture is negative C diff toxin is negative. Additional stool cx negative. Campylobacter and WBCs are pending and will monitor final cultures. Preliminary blood cultures reveal NGTD. Final cultures will be monitored. Recommend monitoring leukocytosis with weekly CBC during his stay. (2) Hyperlipidemia: Qualifiers: Hyperlipidemia type: unspecified Qualified Code(s): E78.5 - Hyperlipidemia, unspecified Code(s): E78.5 - Hyperlipidemia, unspecified Status: Acute Assessment and Plan: Lipid panel was performed and is within normal limits. Continue atorvastatin (3) Hypertension: Qualifiers: Hypertension type: essential hypertension Qualified Code(s): I10 - Essential (primary) hypertension Code(s): I10 - Essential (primary) hypertension Status: Acute Assessment and Plan: Blood pressures are stable and well controlled. 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. He has residual left sided weakness. Continue current care plan, PT/OT/ST (5) Tobacco abuse: Code(s): Z72.0 - Tobacco use Status: Acute Assessment and Plan: He smokes 1 ppd. He has not smoked in 1 week since his hospital evaluation. I have educated him on smoking cessation. Continue nicotine patch Additional Plan Will sign off at this time. I will monitor final cultures and will initiate intervention as needed. Please call me if there are any questions or change in patient's medical condition. Thank you for allowing me to participate in care for this patient. Subjective Date/time seen: 10/06/19 13:41 Interval history: Date of service: 10/06/2019 He is doing well today. He has no concerns at this time. He has been eating well. He feels in his usual state of health. He denies dizziness, lightheadedness, fever, chills, headache, dysphagia, cough, shortness of breath, chest pain, palpitations, nausea, vomiting, abdominal pain, diarrhea, dysuria, or hematuria. He has been progressing well with therapy. Review of Systems Review of Systems: Narrative: A 12 point review of systems was reviewed with pertinent positives and negatives as per HPI. Exam Narrative: Exam Narrative: Mr. Daniels is a well-nourished 79-year-old male who is lying supine in bed. He appears comfortable and is in no acute respiratory distress. HR 85, BP 110/56, RR 18, T 96.6?, 95% on room air Neuro: awake, alert and oriented x4, speech clear, no focal bryant
[2019-10-06 14:00] VITALS: BP 124/50; PULSE 74; RESP 16; TEMP 36.1; O2SAT 96
--- NOTE | 2019-10-06 16:33 | REHAB_ITS ---
DATE OF SERVICE: 10/02/2019 The patient was seen [id number] on 10/02/2019 in the morning at 10 o'clock. History and physical was dictated on the wrong patient and this is a re-dictation of the same patient. This 79 years old male has been admitted to [facility]. 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 The patient was discharged home with resolution of symptoms within 2 days, then presented to [facility] in [place] on 09/24/2019, with acute worsening of the left-sided weakness associated with the fall. He was actually at [facility] for his followup when this event occurred. He was taken to the emergency room. NIHSS was 3. Head CT scan revealed no hemorrhage. CTA revealed evidence of right MCA territory infarct, which correlates with known perfusion and normal on recent perfusion study. He was not considered a candidate for tPA or thrombectomy given his recent stroke and NIHSS less than 6. CTA showed recent right MCA territory infarct and occlusion of the right cervical ICA with distal reconstitution including the MCA branches. Neurology was consulted and he was continued on aspirin and atorvastatin and his home antihypertensive medication was held to allow for permissive hypertension. A lumbar spine MRI was ordered for recent weight loss, back pain, and history of prostatic cancer. MRI of the lumbar spine revealed no abnormal enhancement and mild degenerative changes. Neurosurgery was consulted for the right ICA occlusion, but given the patient's complete occlusion and history of prior right carotid endarterectomy it was felt that the patient was not a good candidate for repeat carotid endarterectomy. The patient completed a modified barium swallow on 09/26/2019 and was cleared for a regular diet. On 09/28/2019, the patient's home dose of lisinopril was restarted. EKG showed atrial fibrillation on 09/24/2019, and the patient will be started on anticoagulation in 7 days. The patient's hospitalization has been significant for hypertension, atrial fibrillation, leukocytosis, intermittent claudication, and back pain. Physical examination continued to reveal left-sided weakness, impaired balance, and decreased gross motor control. He was transferred to rehab on Lovenox for DVT prophylaxis. Therapy was initiated on the acute care facility and the patient was transferred to us from [place] on 10/01/2019. SURGERY OR FALLS: The patient has had no major surgery in the last 100 days prior to admission. The patient has had falls in the past year. The patient has had no fall with injury in the last year. PAST MEDICAL HISTORY: Depression, hyperlipidemia, hypertension, bilateral knee pain, malignant neoplasm of the prostate, nephrolithiasis, osteoarthritis, stroke, tibial plateau fracture, obstructive sleep apnea syndrome, peripheral arterial occlusive disease. PAST SURGICAL HISTORY: Left angio selective carotid, right carotid endarterectomy, prostatectomy, radiation treatment to the pelvis. No major surgery in the last 100 days. SOCIAL HISTORY: , retired school age program teacher. The patient lives with his in a two-story home with an elevator and a level entry. The patient is able to live on the 1st floor. He has a tub shower combo with standard toilet. He reported using a wheeled walker just since the stroke in August. Prior to that, the patient was not using a device at all. The patient's is available to assist the patient following rehab if needed. The patient reports fallin
[2019-10-06] MEDS: ATORVASTATIN 40 MG TABLET 80 MG PO (19:55)
[2019-10-06 20:13] VITALS: BP 133/50; PULSE 90; RESP 18; TEMP 36.4; O2SAT 93
[2019-10-07 05:20] VITALS: BP 120/59; PULSE 64; RESP 18; TEMP 36.2; O2SAT 96
[2019-10-07] MEDS: cilostazoL 100 MG TABLET PO ×2 (05:49→17:18)
[2019-10-07 09:18] VITALS: PULSE 64
[2019-10-07] MEDS: APIXABAN 5 MG TABLET PO ×2 (09:18→17:18)
[2019-10-07] MEDS: CITALOPRAM HYDROBROMIDE 20 MG TABLET PO (09:18)
[2019-10-07] MEDS: lisinopriL 20 MG TABLET 40 MG PO (09:18)
[2019-10-07] MEDS: METOPROLOL SUCCINATE EXT REL 12.5 MG TABCR PO (09:18)
[2019-10-07] MEDS: NICOTINE (*PBKC) 14 MG PATCH 1 PATCH TRANSDERM (09:19)
--- NOTE | 2019-10-07 12:56 | WPDNEURORHBP ---
Subjective Date/time seen: 10/07/19 12:56 Interval history: this 79-year-old gentleman is here after having had the stroke with left-sided weakness which is improving he denies any headache nausea chest pain shortness of breath fever chills sore throat Review of Systems Review of Systems: All systems reviewed & are unremarkable except as noted in HPI and below Functional Status Ambulation Ability Ability to Ambulate 10 Feet: Standby Assistance Ability to Ambulate 50 Feet With 2 Turns: Standby Assistance Ability to Ambulate 150 Feet: Standby Assistance Ambulation Assistive Devices: Walker, Wheeled Transfers Ability Ability to Transfer In/Out of Chair: Minimum Assistance X 1 Exam Const: General: comfortable and no acute distress HENMT: General nose exam: Normal nares present Mouth: Yes moist mucous membranes Eyes: General: appearance normal, both eyes and all related structures Neck: Neck: supple and no JVD Resp: Effort & Inspection: normal respiratory effort Auscultation: clear to auscultation bilaterally Cardio: Rate: regular rate Rhythm: regular rhythm GI: GI Palp: Yes Soft to palpation Auscultation: normal bowel sounds Skin: General skin exam: normal color and no rashes or lesions noted Neuro: Other: patient is awake and alert well oriented does have left sided weakness and right hemispheric deficit with the visual field defect and neglect on the left side needing assistance all the activities of daily living Extrem: General: normal to inspection Psych: Mental Status: mental status grossly normal Objective Data Vital Signs Vital Signs: Vital Signs - 24 hr 10/06/19 14:00 10/06/19 20:13 10/07/19 05:20 Temperature 36.1 C L 36.4 C 36.2 C L Pulse Rate 74 90 64 Respiratory Rate 18 Blood Pressure 124/50 L 133/50 L 120/59 L Pulse Oximetry 96 93 96 10/07/19 09:18 Temperature Pulse Rate 64 Respiratory Rate Blood Pressure Pulse Oximetry Intake/Output Intake/Output: Intake & Output 10/04/19 10/05/19 10/06/19 10/07/19 23:59 23:59 23:59 23:59 Intake Total 212 562 5172 480 Balance 682 150 7798 480 Meds/Results Medications: Active Medications Generic Name Dose Route Start Last Admin Trade Name Freq PRN Reason Stop Dose Admin Apixaban 5 mg 10/01/19 19:40 10/07/19 09:18 Eliquis PO 5 mg BID ANGEL Administration Atorvastatin Calcium 80 mg 10/01/19 21:00 10/06/19 19:55 Lipitor PO 80 mg HS ANGEL Administration Cilostazol 100 mg 10/01/19 19:40 10/07/19 05:49 Pletal PO 100 mg BIDAC ANGEL Administration Citalopram Hydrobromide 20 mg 10/02/19 09:00 10/07/19 09:18 Celexa PO 20 mg DAILY ANGEL Administration Ergocalciferol 50,000 unit 10/05/19 09:00 10/05/19 09:41 Drisdol PO 50,000 unit Mo@0900 ANGEL Administration Hydrocortisone 1 applic 10/04/19 20:53 Hydrocortisone 2.5% Cream TOPICAL Q12HR PRN Rash Lisinopril 40 mg 10/02/19 09:00 10/07/19 09:18 Prinivil PO 40 mg DAILY ANGEL Administration Loperamide HCl 2 mg 10/04/19 15:13 Loperamide Hcl PO PRN PRN Diarrhea Loratadine 10 mg 10/01/19 19:34 10/05/19 09:41 Claritin PO 10 mg DAILY PRN Administration Allergy Symptoms Metoprolol Succinate 12.5 mg 10/02/19 09:00 10/07/19 09:18 Toprol Xl PO 12.5 mg DAILY ANGEL Administration Nicotine 1 patch 10/07/19 09:00 10/07/19 09:19 Nicoderm Cq 14 Mg TRANSDERM 1 patch QAM ANGEL Administration Radiology Results: ITS Impressions Chest X-Ray 10/02/19 14:36 IMPRESSION: 1. Mild atelectasis in the lower lung zones. Progress Note: A&P Assessment and Plan (1) Left hemiparesis: Code(s): G81.94 - Hemiplegia, unspecified affecting left nondominant side Status: Acute (2) Stroke: Code(s): I63.9 - Cerebral infarction, unspecified Status: Acute (3) Tobacco abuse: Code(s): Z72.0 - Tobacco use Status: Acute (4) Leukocytos
[2019-10-07 14:00] VITALS: BP 133/66; PULSE 65; RESP 20; TEMP 36.5; O2SAT 97
[2019-10-07] MEDS: ATORVASTATIN 40 MG TABLET 80 MG PO (21:40)
[2019-10-07 22:00] VITALS: BP 124/71; PULSE 70; RESP 14; TEMP 36.4; O2SAT 93
[2019-10-08 04:59] VITALS: BP 114/46; PULSE 72; RESP 14; TEMP 36.6; O2SAT 93
[2019-10-08] MEDS: cilostazoL 100 MG TABLET PO ×2 (05:33→17:26)
[2019-10-08] MEDS: lisinopriL 20 MG TABLET 40 MG PO (08:55)
[2019-10-08] MEDS: CITALOPRAM HYDROBROMIDE 20 MG TABLET PO (08:55)
[2019-10-08] MEDS: NICOTINE (*PBKC) 14 MG PATCH 1 PATCH TRANSDERM (08:56)
[2019-10-08 08:58] VITALS: PULSE 72
[2019-10-08] MEDS: METOPROLOL SUCCINATE EXT REL 12.5 MG TABCR PO (08:58)
[2019-10-08] MEDS: APIXABAN 5 MG TABLET PO ×2 (09:24→17:26)
[2019-10-08 14:00] VITALS: BP 114/60; PULSE 74; RESP 16; TEMP 36.8; O2SAT 95
[2019-10-08] MEDS: ATORVASTATIN 40 MG TABLET 80 MG PO (20:29)
[2019-10-08 20:32] VITALS: BP 109/65; PULSE 73; RESP 18; TEMP 36.8; O2SAT 96
[2019-10-09 04:47] LABS: Basophils Absolute Auto 0.1 K/mm3 (0.0-0.1); Basophils Percent Auto 0.5 % (0.2-1.2); Eosinophils Absolute Auto 0.3 K/mm3 (0-0.3); Eosinophils Percent Auto 2.3 % (0-4.4); Hematocrit 36.4 % (42.0-52.0); Hemoglobin 12.2 g/dL (14.0-18.0); Immature Granulocyte Absolute 0.07 K/mm3 (0.00-0.031); Immature Granulocyte Percent A 0.5 % (0-0.5); Lymphocytes Absolute Auto 2.76 K/mm3 (0.9-3.2); Lymphocytes Percent Auto 18.8 % (18.3-44.2); Mean Corpuscular HGB Conc 33.5 g/dl (32-36); Mean Corpuscular Hemoglobin 29.5 pg (26-34); Mean Corpuscular Volume 87.9 fl (80-100); Neutrophils Absolute Auto 10.4 K/mm3 (1.3-6.7); Neutrophils Percent Auto 70.9 % (45.5-73.1); Platelet Count Result 267 k/mm3 (150-375); Red Blood Count 4.14 M/mm3 (4.6-6.20); Red Cell Distribution Width 14.2 % (11.5-14.5); White Blood Count 14.7 K/mm3 (4.5-10.0)
[2019-10-09 05:06] LABS: Anion Gap 8 mmol/L (8-16); Blood Urea Nitrogen 21 mg/dL (9-20); Calcium 8.9 mg/dL (8.4-10.2); Carbon Dioxide 26 mmol/L (22-30); Chloride 106 mmol/L (98-107); Estimated CRCL calculation 61 ml/min; Estimated Glomerular Filt Rate > 60; Glucose 119 mg/dL (75-110); Potassium 3.6 mmol/L (3.4-5.0); Sodium 140 mmol/L (137-145)
[2019-10-09 05:26] VITALS: BP 128/56; PULSE 66; RESP 18; TEMP 36.4; O2SAT 98
[2019-10-09] MEDS: cilostazoL 100 MG TABLET PO ×2 (05:42→16:11)
[2019-10-09 08:00] VITALS: PULSE 66; RESP 18; O2SAT 98
[2019-10-09 10:08] VITALS: PULSE 66
[2019-10-09] MEDS: lisinopriL 20 MG TABLET 40 MG PO (10:08)
[2019-10-09] MEDS: CITALOPRAM HYDROBROMIDE 20 MG TABLET PO (10:08)
[2019-10-09] MEDS: METOPROLOL SUCCINATE EXT REL 12.5 MG TABCR PO (10:08)
[2019-10-09] MEDS: APIXABAN 5 MG TABLET PO ×2 (10:08→16:11)
[2019-10-09] MEDS: NICOTINE (*PBKC) 14 MG PATCH 1 PATCH TRANSDERM (10:09)
--- NOTE | 2019-10-09 11:58 | PCDIET ---
Nutrition Follow-Up Complete: Nutrition Diagnosis: Inadequate oral intake related to poor appetite as evidenced by patient report and weight loss of 7.7 kg in last 2 weeks Nutrition Goal: Patient to consume 75% or more of meals and supplements Goal met. Patient consuming 75-100% of most meals on regular diet. Receiving Ensure Enlive TID and would like to continue. No c/o or concerns reported during visit. Last recorded weight is 82.2 kg. Recommend obtaining new weight. Bowel Motility: Last documented BM on 10/07/19. Labs Reviewed: Hgb (12.2), Hct (36.4), Glu (119), BUN (21) Meds Noted: Daniel Martínez Additional Notes: No documented skin breakdown. Will continue to monitor with same goal. Nutrition Monitoring and Evaluation: Follow up in 7 days.
[2019-10-09 14:00] VITALS: BP 121/59; PULSE 73; RESP 18; TEMP 36.5; O2SAT 91
--- NOTE | 2019-10-09 14:37 | WPDNEURORHBP ---
Subjective Date/time seen: 79 years old has been admitted to the acute rehab floor with a left hemiparesis which is obviously improving has no associated new [id number]/21/20 14:37 Review of Systems Review of Systems: Narrative: review of system is unremarkable Functional Status Ambulation Ability Ability to Ambulate 10 Feet: Standby Assistance Ability to Ambulate 50 Feet With 2 Turns: Standby Assistance Ability to Ambulate 150 Feet: Contact Guard Ambulation Assistive Devices: Walker, Wheeled Transfers Ability Ability to Transfer In/Out of Chair: Standby Assistance Exam Narrative: Exam Narrative: examination revealed him to be awake alert ear nose throat exam is normal with clear nose clears mouth neck supple with no cervical bruit no thyromegaly no lymphadenopathy no meningeal signs heart regular with normal rhythm lungs clear with no rhonchi and no crepitation abdomen is soft with normal bowel sounds no organomegaly is skin clear with no rashes or lesions neurological is awake alert oriented has obvious left-sided weakness with visual field cut requiring assistance for altered activities of daily living extremities normal with no evidence of edema or swelling psych normal Objective Data Vital Signs Vital Signs: Vital Signs - 24 hr 10/08/19 20:32 10/09/19 05:26 10/09/19 08:00 Temperature 36.8 C 36.4 C L Pulse Rate 73 66 66 Respiratory Rate 18 18 18 Blood Pressure 109/65 128/56 L Pulse Oximetry 96 98 98 10/09/19 10:08 Temperature Pulse Rate 66 Respiratory Rate Blood Pressure Pulse Oximetry Intake/Output Intake/Output: Intake & Output 10/06/19 10/07/19 10/08/19 10/09/19 23:59 23:59 23:59 23:59 Intake Total 1320 1080 1550 660 Balance 1320 1080 1550 660 Meds/Results Medications: Active Medications Generic Name Dose Route Start Last Admin Trade Name Freq PRN Reason Stop Dose Admin Apixaban 5 mg 10/01/19 19:40 10/09/19 10:08 Eliquis PO 5 mg BID ANGEL Administration Atorvastatin Calcium 80 mg 10/01/19 21:00 10/08/19 20:29 Lipitor PO 80 mg HS ANGEL Administration Cilostazol 100 mg 10/01/19 19:40 10/09/19 05:42 Pletal PO 100 mg BIDAC ANGEL Administration Citalopram Hydrobromide 20 mg 10/02/19 09:00 10/09/19 10:08 Celexa PO 20 mg DAILY ANGEL Administration Ergocalciferol 50,000 unit 10/05/19 09:00 10/05/19 09:41 Drisdol PO 50,000 unit Mo@0900 ANGEL Administration Hydrocortisone 1 applic 10/04/19 20:53 Hydrocortisone 2.5% Cream TOPICAL Q12HR PRN Rash Lisinopril 40 mg 10/02/19 09:00 10/09/19 10:08 Prinivil PO 40 mg DAILY ANGEL Administration Loperamide HCl 2 mg 10/04/19 15:13 Loperamide Hcl PO PRN PRN Diarrhea Loratadine 10 mg 10/01/19 19:34 10/05/19 09:41 Claritin PO 10 mg DAILY PRN Administration Allergy Symptoms Metoprolol Succinate 12.5 mg 10/02/19 09:00 10/09/19 10:08 Toprol Xl PO 12.5 mg DAILY ANGEL Administration Nicotine 1 patch 10/07/19 09:00 10/09/19 10:09 Nicoderm Cq 14 Mg TRANSDERM 1 patch QAM ANGEL Administration Radiology Results: ITS Impressions Chest X-Ray 10/02/19 14:36 IMPRESSION: 1. Mild atelectasis in the lower lung zones. Labs Labs: Laboratory Results - last 24 hr 10/09/19 10/09/19 04:35 04:35 WBC 14.7 H RBC 4.14 L Hgb 12.2 L Hct 36.4 L MCV 87.9 MCH 29.5 MCHC 33.5 RDW 14.2 Plt Count 267 MPV 11.0 H Immature Gran % (Auto) 0.5 Neut % (Auto) 70.9 Lymph % (Auto) 18.8 [place] % (Auto) 7.0 Eos % (Auto) 2.3 Baso % (Auto) 0.5 Lymph # (Auto) 2.76 [place] # (Auto) 1.0 H Eos # (Auto) 0.3 Baso # (Auto) 0.1 Abs Immat Gran (auto) 0.07 H Absolute Neuts (auto) 10.4 H Absolute Nucleated RBC 0.0 Nucleated RBC % 0.0 Sodium 140 Potassium 3.6 Chloride 106 Carbon Dioxide 26 Anion Gap 8 BUN 21 H Creatinine 0.80 Estim Creat Clear Calc 61 Estimated GFR > 60
--- NOTE | 2019-10-09 14:45 | PCCCNOTE ---
On 10/09/19, the student, [Mason Mott ], provided care and completed [facility] documentation on this patient. I have reviewed the student's documentation and agree with the findings.
[2019-10-09] MEDS: ATORVASTATIN 40 MG TABLET 80 MG PO (20:20)
[2019-10-09 22:00] VITALS: BP 138/66; PULSE 72; RESP 18; TEMP 36.9; O2SAT 93
[2019-10-10] MEDS: cilostazoL 100 MG TABLET PO ×2 (05:58→16:40)
[2019-10-10 06:00] VITALS: BP 105/63; PULSE 72; RESP 16; TEMP 36.4; O2SAT 94
[2019-10-10 08:47] VITALS: PULSE 72
[2019-10-10] MEDS: lisinopriL 20 MG TABLET 40 MG PO (08:47)
[2019-10-10] MEDS: METOPROLOL SUCCINATE EXT REL 12.5 MG TABCR PO (08:47)
[2019-10-10] MEDS: CITALOPRAM HYDROBROMIDE 20 MG TABLET PO (08:47)
[2019-10-10] MEDS: APIXABAN 5 MG TABLET PO ×2 (08:47→16:40)
[2019-10-10] MEDS: NICOTINE (*PBKC) 14 MG PATCH 1 PATCH TRANSDERM (08:47)
[2019-10-10 14:00] VITALS: BP 142/62; PULSE 69; RESP 17; TEMP 36.6; O2SAT 96
--- NOTE | 2019-10-10 16:35 | WPDNEURORHBP ---
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 and reconstitution further distally inside the brain neurosurgery has been consulted and did not feel that the patient would benefit from right carotid endarterectomy that was at [facility] The patient here is making a relatively slow progress and significantly weak on the left side beds better denies any headache nausea vomiting chest pain shortness of breath fever chills sore throat Review of Systems Review of Systems: All systems reviewed & are unremarkable except as noted in HPI and below Functional Status Ambulation Ability Ability to Ambulate 10 Feet: Standby Assistance Ability to Ambulate 50 Feet With 2 Turns: Standby Assistance Ability to Ambulate 150 Feet: Standby Assistance Ambulation Assistive Devices: Walker, Wheeled Transfers Ability Ability to Transfer In/Out of Chair: Independent Exam Const: General: comfortable and no acute distress HENMT: General nose exam: Normal nares present Mouth: Yes moist mucous membranes Eyes: General: appearance normal, both eyes and all related structures Neck: Neck: supple and no JVD Resp: Effort & Inspection: normal respiratory effort Auscultation: clear to auscultation bilaterally Cardio: Rate: regular rate Rhythm: regular rhythm GI: GI Palp: Yes Soft to palpation Auscultation: normal bowel sounds Skin: General skin exam: normal color and no rashes or lesions noted Neuro: Other: patient is awake and alert oriented has right hemispheric deficit with slow improvement Extrem: General: normal to inspection Psych: Mental Status: mental status grossly normal Objective Data Vital Signs Vital Signs: Vital Signs - 24 hr 10/09/19 22:00 10/10/19 06:00 10/10/19 08:47 Temperature 36.9 C 36.4 C L Pulse Rate 72 72 72 Respiratory Rate 18 16 Blood Pressure 138/66 105/63 Pulse Oximetry 93 94 10/10/19 14:00 Temperature 36.6 C Pulse Rate 69 Respiratory Rate 17 Blood Pressure 142/62 H Pulse Oximetry 96 Intake/Output Intake/Output: Intake & Output 10/07/19 10/08/19 10/09/19 10/10/19 23:59 23:59 23:59 23:59 Intake Total 5404 4113 856 174 Balance 5620 4335 479 061 Meds/Results Medications: Active Medications Generic Name Dose Route Start Last Admin Trade Name Freq PRN Reason Stop Dose Admin Apixaban 5 mg 10/01/19 19:40 10/10/19 08:47 Eliquis PO 5 mg BID ANGEL Administration Atorvastatin Calcium 80 mg 10/01/19 21:00 10/09/19 20:20 Lipitor PO 80 mg HS ANGEL Administration Cilostazol 100 mg 10/01/19 19:40 10/10/19 05:58 Pletal PO 100 mg BIDAC ANGEL Administration Citalopram Hydrobromide 20 mg 10/02/19 09:00 10/10/19 08:47 Celexa PO 20 mg DAILY ANGEL Administration Ergocalciferol 50,000 unit 10/05/19 09:00 10/05/19 09:41 Drisdol PO 50,000 unit Mo@0900 [facility] Administration Hydrocortisone 1 applic 10/04/19 20:53 Hydrocortisone 2.5% Cream TOPICAL Q12HR PRN Rash Lisinopril 40 mg 10/02/19 09:00 10/10/19 08:47 Prinivil PO 40 mg DAILY ANGEL Administration Loperamide HCl 2 mg 10/04/19 15:13 Loperamide Hcl PO PRN PRN Diarrhea Loratadine 10 mg 10/01/19 19:34 10/05/19 09:41 Claritin PO 10 mg DAILY PRN Administration Allergy Symptoms Metoprolol Succinate 12.5 mg 10/02/19 09:00 10/10/19 08:47 Toprol Xl PO 12.5 mg DAILY ANGEL Administration Nicotine 1 patch 10/07/19 09:00 10/10/19 08:47 Nicoderm Cq 14 Mg TRANSDERM 1 patch QAM ANGEL Administration Radiology Results: ITS Impressions Chest X-Ray 10/02/19 14:36 IMPRESSION: 1. Mild atelectasis in the lower lung zones. Progress Note: A&P Assessment and Plan (1) Occlusion of middle cerebral artery: Code(s): I66.09 - Occlusion and stenosis of unspecif
[2019-10-10] MEDS: ATORVASTATIN 40 MG TABLET 80 MG PO (19:59)
[2019-10-10 22:00] VITALS: BP 136/56; PULSE 68; RESP 18; TEMP 36.4; O2SAT 92
[2019-10-11] MEDS: cilostazoL 100 MG TABLET PO ×2 (05:25→17:13)
[2019-10-11 06:00] VITALS: BP 145/67; PULSE 71; RESP 18; TEMP 36.3; O2SAT 98
[2019-10-11] MEDS: lisinopriL 20 MG TABLET 40 MG PO (08:49)
[2019-10-11] MEDS: APIXABAN 5 MG TABLET PO ×2 (08:49→17:13)
[2019-10-11 08:50] VITALS: PULSE 71
[2019-10-11] MEDS: CITALOPRAM HYDROBROMIDE 20 MG TABLET PO (08:50)
[2019-10-11] MEDS: METOPROLOL SUCCINATE EXT REL 12.5 MG TABCR PO (08:50)
[2019-10-11] MEDS: NICOTINE (*PBKC) 14 MG PATCH 1 PATCH TRANSDERM (08:50)
[2019-10-11 14:00] VITALS: BP 131/62; PULSE 94; RESP 17; TEMP 36.1; O2SAT 92
--- NOTE | 2019-10-11 18:31 | WPDNEURORHBP ---
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 his making excellent progress and improving left-sided hemiparesis denies any headache nausea vomiting chest pain shortness of breath fever chills sore throat Review of Systems Review of Systems: All systems reviewed & are unremarkable except as noted in HPI and below Functional Status Ambulation Ability Ability to Ambulate 10 Feet: Standby Assistance Ability to Ambulate 50 Feet With 2 Turns: Standby Assistance Ability to Ambulate 150 Feet: Standby Assistance Ambulation Assistive Devices: Walker, Wheeled Transfers Ability Ability to Transfer In/Out of Chair: Standby Assistance Exam Const: General: comfortable and no acute distress HENMT: General nose exam: Normal nares present Mouth: Yes moist mucous membranes Eyes: General: appearance normal, both eyes and all related structures Neck: Neck: supple and no JVD Resp: Effort & Inspection: normal respiratory effort Auscultation: clear to auscultation bilaterally Cardio: Rate: regular rate Rhythm: regular rhythm GI: GI Palp: Yes Soft to palpation Auscultation: normal bowel sounds Skin: General skin exam: normal color and no rashes or lesions noted Neuro: Other: patient is awake alert well oriented and improving neurological deficit on the left side Extrem: General: normal to inspection Psych: Mental Status: mental status grossly normal Objective Data Vital Signs Vital Signs: Vital Signs - 24 hr 10/10/19 22:00 10/11/19 06:00 10/11/19 08:50 Temperature 36.4 C 36.3 C L Pulse Rate 68 71 71 Respiratory Rate 18 18 Blood Pressure 136/56 L 145/67 H Pulse Oximetry 92 98 10/11/19 14:00 Temperature 36.1 C L Pulse Rate 94 Respiratory Rate 17 Blood Pressure 131/62 Pulse Oximetry 92 Intake/Output Intake/Output: Intake & Output 10/08/19 10/09/19 10/10/19 10/11/19 23:59 23:59 23:59 23:59 Intake Total 1550 760 650 840 Balance 1550 760 650 840 Meds/Results Medications: Active Medications Generic Name Dose Route Start Last Admin Trade Name Freq PRN Reason Stop Dose Admin Apixaban 5 mg 10/01/19 19:40 10/11/19 17:13 Eliquis PO 5 mg BID ANGEL Administration Atorvastatin Calcium 80 mg 10/01/19 21:00 10/10/19 19:59 Lipitor PO 80 mg HS ANGEL Administration Cilostazol 100 mg 10/01/19 19:40 10/11/19 17:13 Pletal PO 100 mg BIDAC ANGEL Administration Citalopram Hydrobromide 20 mg 10/02/19 09:00 10/11/19 08:50 Celexa PO 20 mg DAILY ANGEL Administration Ergocalciferol 50,000 unit 10/05/19 09:00 10/05/19 09:41 Drisdol PO 50,000 unit Mo@0900 ANGEL Administration Hydrocortisone 1 applic 10/04/19 20:53 Hydrocortisone 2.5% Cream TOPICAL Q12HR PRN Rash Lisinopril 40 mg 10/02/19 09:00 10/11/19 08:49 Prinivil PO 40 mg DAILY ANGEL Administration Loperamide HCl 2 mg 10/04/19 15:13 Loperamide Hcl PO PRN PRN Diarrhea Loratadine 10 mg 10/01/19 19:34 10/05/19 09:41 Claritin PO 10 mg DAILY PRN Administration Allergy Symptoms Metoprolol Succinate 12.5 mg 10/02/19 09:00 10/11/19 08:50 Toprol Xl PO 12.5 mg DAILY ANGEL Administration Nicotine 1 patch 10/07/19 09:00 10/11/19 08:50 Nicoderm Cq 14 Mg TRANSDERM 1 patch QAM ANGEL Administration Radiology Results: ITS Impressions Chest X-Ray 10/02/19 14:36 IMPRESSION: 1. Mild atelectasis in the lower lung zones. Progress Note: A&P Assessment and Plan (1) Occlusion of middle cerebral artery: Code(s): I66.09 - Occlusion and stenosis of unspecified middle cerebral artery Status: Acute (2) Internal carotid artery occlusion: Code(s): I65.29 - Occlusion and stenosis of unspecified carotid artery Status: Acute (3) Left hemiparesis: Code(s): G81.94 - Hemiplegia, unspecif
[2019-10-11 19:31] VITALS: O2SAT 92
[2019-10-11] MEDS: ATORVASTATIN 40 MG TABLET 80 MG PO (20:17)
[2019-10-11 20:51] VITALS: BP 90/52; PULSE 61; RESP 18; TEMP 36.4; O2SAT 96
[2019-10-12 05:19] VITALS: BP 94/44; PULSE 71; RESP 18; TEMP 36.1; O2SAT 90
[2019-10-12] MEDS: cilostazoL 100 MG TABLET PO ×2 (06:14→17:14)
[2019-10-12 09:10] VITALS: PULSE 74; RESP 18; O2SAT 89
[2019-10-12] MEDS: NICOTINE (*PBKC) 14 MG PATCH 1 PATCH TRANSDERM (09:28)
[2019-10-12] MEDS: ERGOCALCIFEROL 50,000 UNIT CAPSULE 50000 UNITS PO (09:28)
[2019-10-12 09:29] VITALS: PULSE 72
[2019-10-12] MEDS: lisinopriL 20 MG TABLET 40 MG PO (09:29)
[2019-10-12] MEDS: METOPROLOL SUCCINATE EXT REL 12.5 MG TABCR PO (09:29)
[2019-10-12] MEDS: CITALOPRAM HYDROBROMIDE 20 MG TABLET PO (09:29)
[2019-10-12] MEDS: APIXABAN 5 MG TABLET PO ×2 (09:29→17:14)
--- NOTE | 2019-10-12 10:49 | WPDNEURORHBP ---
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 and clinically left hemiparesis involved in physical therapy and occupation therapy with no specific complaints today10/12/19 10:49 Review of Systems Review of Systems: Narrative: all systems reviewed and are unremarkable except as noted Functional Status Ambulation Ability Ability to Ambulate 10 Feet: Independent Ability to Ambulate 50 Feet With 2 Turns: Independent Ability to Ambulate 150 Feet: Independent Ambulation Assistive Devices: Walker, Wheeled Transfers Ability Ability to Transfer In/Out of Chair: Independent Exam Narrative: Exam Narrative: exam reveals him to be no obvious acute distress head normocephalic ears nose throat examination normal neck supple with no cervical bruits or thyromegaly no lymphadenopathy no JVD heart regular with no murmur lungs clear with no rhonchi or crepitations abdomen is soft with no organomegaly neurological he is awake alert with obvious left hemiparesis and mental status grossly normal Objective Data Vital Signs Vital Signs: Vital Signs - 24 hr 10/11/19 14:00 10/11/19 19:31 10/11/19 20:51 Temperature 36.1 C L 36.4 C L Pulse Rate 94 61 Respiratory Rate 17 18 Blood Pressure 131/62 90/52 L Pulse Oximetry 92 92 96 10/12/19 05:19 10/12/19 09:29 Temperature 36.1 C L Pulse Rate 71 72 Respiratory Rate 18 Blood Pressure 94/44 L Pulse Oximetry 90 Intake/Output Intake/Output: Intake & Output 10/09/19 10/10/19 10/11/19 10/12/19 23:59 23:59 23:59 23:59 Intake Total 760 650 840 320 Balance 760 650 840 320 Meds/Results Medications: Active Medications Generic Name Dose Route Start Last Admin Trade Name Freq PRN Reason Stop Dose Admin Apixaban 5 mg 10/01/19 19:40 10/12/19 09:29 Eliquis PO 5 mg BID ANGEL Administration Atorvastatin Calcium 80 mg 10/01/19 21:00 10/11/19 20:17 Lipitor PO 80 mg HS ANGEL Administration Cilostazol 100 mg 10/01/19 19:40 10/12/19 06:14 Pletal PO 100 mg BIDAC ANGEL Administration Citalopram Hydrobromide 20 mg 10/02/19 09:00 10/12/19 09:29 Celexa PO 20 mg DAILY ANGEL Administration Ergocalciferol 50,000 unit 10/05/19 09:00 10/12/19 09:28 Drisdol PO 50,000 unit Mo@0900 ANGEL Administration Hydrocortisone 1 applic 10/04/19 20:53 Hydrocortisone 2.5% Cream TOPICAL Q12HR PRN Rash Lisinopril 40 mg 10/02/19 09:00 10/12/19 09:29 Prinivil PO 40 mg DAILY ANGEL Administration Loperamide HCl 2 mg 10/04/19 15:13 Loperamide Hcl PO PRN PRN Diarrhea Loratadine 10 mg 10/01/19 19:34 10/05/19 09:41 Claritin PO 10 mg DAILY PRN Administration Allergy Symptoms Metoprolol Succinate 12.5 mg 10/02/19 09:00 10/12/19 09:29 Toprol Xl PO 12.5 mg DAILY ANGEL Administration Nicotine 1 patch 10/07/19 09:00 10/12/19 09:28 Nicoderm Cq 14 Mg TRANSDERM 1 patch QAM ANGEL Administration Radiology Results: ITS Impressions Chest X-Ray 10/02/19 14:36 IMPRESSION: 1. Mild atelectasis in the lower lung zones. Progress Note: A&P Assessment and Plan (1) Occlusion of middle cerebral artery: Code(s): I66.09 - Occlusion and stenosis of unspecified middle cerebral artery Status: Acute (2) Internal carotid artery occlusion: Code(s): I65.29 - Occlusion and stenosis of unspecified carotid artery Status: Acute (3) Left hemiparesis: Code(s): G81.94 - Hemiplegia, unspecified affecting left nondominant side Status: Acute (4) Stroke: Code(s): I63.9 - Cerebral infarction, unspecified Status: Acute (5) Tobacco abuse: Code(s): Z72.0 - Tobacco use Status: Acute (6) Leukocytosis: Qualifiers: Leukocytosis type: unspecified Qualified Code(s): D72.829 - Elevated white blood cell count, unspecified Code(s): D72.829 - Elevated whi
[2019-10-12 14:00] VITALS: BP 104/59; PULSE 70; RESP 19; TEMP 36.2; O2SAT 95
[2019-10-12] MEDS: ATORVASTATIN 40 MG TABLET 80 MG PO (20:19)
[2019-10-12 21:00] VITALS: BP 108/46; PULSE 70; RESP 20; TEMP 36.9; O2SAT 97
[2019-10-13 05:05] VITALS: BP 116/61; PULSE 75; RESP 20; TEMP 36.4; O2SAT 96
[2019-10-13] MEDS: cilostazoL 100 MG TABLET PO (06:05)
[2019-10-13 08:28] VITALS: PULSE 74
[2019-10-13] MEDS: METOPROLOL SUCCINATE EXT REL 12.5 MG TABCR PO (08:28)
[2019-10-13] MEDS: CITALOPRAM HYDROBROMIDE 20 MG TABLET PO (08:28)
[2019-10-13] MEDS: lisinopriL 20 MG TABLET 40 MG PO (08:28)
[2019-10-13] MEDS: APIXABAN 5 MG TABLET PO (08:29)
[2019-10-13] MEDS: NICOTINE (*PBKC) 14 MG PATCH 1 PATCH TRANSDERM (08:29)
[2019-10-13 08:30] VITALS: PULSE 74; RESP 20; O2SAT 96
--- NOTE | 2019-10-13 11:33 | WPDNEURORHBP ---
Subjective Date/time seen: 10/13/19 11:33 Interval history: this 79-year-old has been here on the rehab after having had stroke and has significantly improved to a point that is going to be discharged today he does not have any specific complaints and looking forward to go home particularly denies any headache nausea vomiting chest pain shortness of breath fever chills sore throat he tells me that he has all the medication he was taking prior to his coming to this hospital medications will be reconciled Review of Systems Review of Systems: All systems reviewed & are unremarkable except as noted in HPI and below Functional Status Ambulation Ability Ability to Ambulate 10 Feet: Independent Ability to Ambulate 50 Feet With 2 Turns: Independent Ability to Ambulate 150 Feet: Independent Ambulation Assistive Devices: Walker, Wheeled Transfers Ability Ability to Transfer In/Out of Chair: Independent Exam Const: General: comfortable and no acute distress HENMT: General nose exam: Normal nares present Mouth: Yes moist mucous membranes Eyes: General: appearance normal, both eyes and all related structures Neck: Neck: supple and no JVD Resp: Effort & Inspection: normal respiratory effort Auscultation: clear to auscultation bilaterally Cardio: Rate: regular rate Rhythm: regular rhythm GI: GI Palp: Yes Soft to palpation Auscultation: normal bowel sounds Skin: General skin exam: normal color and no rashes or lesions noted Neuro: Other: patient is awake alert and well-oriented with mild short-term memory deficit otherwise in neurological deficit has significantly improved and his going to be going home with home health to follow Extrem: General: normal to inspection Psych: Mental Status: mental status grossly normal Other: mild short-term memory deficit Objective Data Vital Signs Vital Signs: Vital Signs - 24 hr 10/12/19 14:00 10/12/19 21:00 10/13/19 05:05 Temperature 36.2 C L 36.9 C 36.4 C L Pulse Rate 70 70 75 Respiratory Rate 19 20 20 Blood Pressure 104/59 L 108/46 L 116/61 Pulse Oximetry 95 97 96 10/13/19 08:28 10/13/19 08:30 Temperature Pulse Rate 74 74 Respiratory Rate 20 Blood Pressure Pulse Oximetry 96 Intake/Output Intake/Output: Intake & Output 10/10/19 10/11/19 10/12/19 10/13/19 23:59 23:59 23:59 23:59 Intake Total 650 840 320 360 Balance 650 840 320 360 Meds/Results Medications: Active Medications Generic Name Dose Route Start Last Admin Trade Name Freq PRN Reason Stop Dose Admin Apixaban 5 mg 10/01/19 19:40 10/13/19 08:29 Eliquis PO 5 mg BID ANGEL Administration Atorvastatin Calcium 80 mg 10/01/19 21:00 10/12/19 20:19 Lipitor PO 80 mg HS ANGEL Administration Cilostazol 100 mg 10/01/19 19:40 10/13/19 06:05 Pletal PO 100 mg BIDAC ANGEL Administration Citalopram Hydrobromide 20 mg 10/02/19 09:00 10/13/19 08:28 Celexa PO 20 mg DAILY ANGEL Administration Ergocalciferol 50,000 unit 10/05/19 09:00 10/12/19 09:28 Drisdol PO 50,000 unit Mo@0900 [facility] Administration Hydrocortisone 1 applic 10/04/19 20:53 Hydrocortisone 2.5% Cream TOPICAL Q12HR PRN Rash Lisinopril 40 mg 10/02/19 09:00 10/13/19 08:28 Prinivil PO 40 mg DAILY ANGEL Administration Loperamide HCl 2 mg 10/04/19 15:13 Loperamide Hcl PO PRN PRN Diarrhea Loratadine 10 mg 10/01/19 19:34 10/05/19 09:41 Claritin PO 10 mg DAILY PRN Administration Allergy Symptoms Metoprolol Succinate 12.5 mg 10/02/19 09:00 10/13/19 08:28 Toprol Xl PO 12.5 mg DAILY ANGEL Administration Nicotine 1 patch 10/07/19 09:00 10/13/19 08:29 Nicoderm Cq 14 Mg TRANSDERM 1 patch QAM ANGEL Administration Radiology Results: ITS Impressions Chest X-Ray 10/02/19 14:36 IMPRESSION: 1. Mild atelectasis in the lower lung zones. Progress Note: A&P Assessment and Plan (1) Occlusion of middle cerebral artery:
--- NOTE | 2019-10-15 11:28 | PM.DS ---
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 Hypertension 2. Hyperlipidemia at the time of admission as per the report he developed dizziness became diaphoretic his legs gave out paramedics brought him to the emergency room where initial CT scan of the head was negative patient received tPA CT angiogram did documented high-grade occlusion and stenosis at the arch of the left vertebral artery for which he was transferred to [facility] and was started on dual antiplatelet therapy clinically he had left-sided weakness along with dizziness DS: Discharge Diagnosis Discharge Diagnosis (1) Occlusion of middle cerebral artery: Code(s): I66.09 - Occlusion and stenosis of unspecified middle cerebral artery Status: Acute (2) Internal carotid artery occlusion: Code(s): I65.29 - Occlusion and stenosis of unspecified carotid artery Status: Acute (3) Left hemiparesis: Code(s): G81.94 - Hemiplegia, unspecified affecting left nondominant side Status: Acute (4) Stroke: Code(s): I63.9 - Cerebral infarction, unspecified Status: Acute (5) Tobacco abuse: Code(s): Z72.0 - Tobacco use Status: Acute (6) Leukocytosis: Qualifiers: Leukocytosis type: unspecified Qualified Code(s): D72.829 - Elevated white blood cell count, unspecified Code(s): D72.829 - Elevated white blood cell count, unspecified Status: Acute (7) 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: Qualifiers: Laterality: left Qualified Code(s): I65.02 - Occlusion and stenosis of left vertebral artery Code(s): I65.09 - Occlusion and stenosis of unspecified vertebral artery Status: Acute (8) Hyperlipidemia: Qualifiers: Hyperlipidemia type: unspecified Qualified Code(s): E78.5 - Hyperlipidemia, unspecified Code(s): E78.5 - Hyperlipidemia, unspecified Status: Acute (9) Hypertension: Qualifiers: Hypertension type: essential hypertension Qualified Code(s): I10 - Essential (primary) hypertension Code(s): I10 - Essential (primary) hypertension Status: Acute DS: Summary Time Spent with Patient Time attestation: Total time spent providing and/or coordinating discharge services: Exam Narrative: Exam Narrative: at the time of discharge he had no specific complaints he was able to ambulate up to 150ft independently with a wheeled walker and to turns he was also able to transfer in and out of chair independently his general physical examination remains stable heart regular lungs clear abdomen is soft neurologically was awake alert short memory deficit mild decrease and no focal neurological deficit at the time of discharge he was independent in eating oral hygiene toileting he required only Fedder for the bathing supervision for upper body dressing lower body dressing footwear he was independent in ruling in bed 62 lying lying to set sick to stand chair transfer toilet transfer car transfer walking 10ft 50ft V2 turns 150ft 10ft and uneven surfaces [place] strep 4 steps 12 steps picking up objects he required only supervision for wheelchair for 50ft and 150ft he was discharged to his home with a home health during the entire hospitalization he had no fall or injuries Discharge Plan Discharge Attending physician on discharge: Fahad Conklin Consulting providers: Samanta Elmore Discharging Clinician: Fahad Conklin Patient Disposition: Home Health Service Activity: may shower and no driving Diet: as tolerated Discharge Instructions: Per Care Coordination: Home Health services have been arranged through [facility]. [facility] can be contacted at [phone]. Patient Instructions
== END 2019-10-13 13:03 | disposition home health service (06) | DRG 57 ==
PROVIDERS: Nurse Practitioner; Physician Assistant; Admitting Provider Psychiatry & Neurology Neurology; Visit Provider Psychiatry & Neurology Neurology
DX: I69.354 Hemiplegia and hemiparesis following cerebral infarction affecting left non-dominant side (principal); I69.311 Memory deficit following cerebral infarction; I69.398 Other sequelae of cerebral infarction; I65.21 Occlusion and stenosis of right carotid artery; H54.7 Unspecified visual loss; D72.829 Elevated white blood cell count, unspecified; E78.5 Hyperlipidemia, unspecified; F17.210 Nicotine dependence, cigarettes, uncomplicated; G47.33 Obstructive sleep apnea (adult) (pediatric); I73.9 Peripheral vascular disease, unspecified; I10 Essential (primary) hypertension; I48.91 Unspecified atrial fibrillation; M54.9 Dorsalgia, unspecified; Z90.79 Acquired absence of other genital organ(s); Z85.46 Personal history of malignant neoplasm of prostate
CPT/HCPCS: 36415; 71045; 80048; 80061; 81001; 83605; 85025; 86140; 87015; 87040; 87045; 87046; 87086; 87269; 87272; 87324; 87427; 89055; 92507; 92523; 97110; 97112; 97116; 97129; 97130; 97162; 97166; 97530; 97535; 97542; A9270